=== PATIENT | male | born 1965 | race Caucasian/White ===

== ENCOUNTER 2018-02-07 17:40 | Emergency (ER) | payer OTHER ==
[~2018-02-07] VITALS: Ht 182.9 cm; Wt 129.3 kg
[~2018-02-07 17:40] MED LIST: CIPR500T94 PO; HYDR-971 PO; METR500T PO; ONDA4TAB10 PO
--- NOTE | 2018-02-07 18:24 | PHYS DOC ---
Past History Past Medical History: Constipation, Diverticulitis, Other Past Surgical History: TURP, Other Smoking: Non-smoker Alcohol Use: Rarely Drug Use: None Adult General Chief Complaint Chief Complaint: ABDOMINAL PAIN HPI HPI Patient is a 52 year old male who presents with complaint of left lower quadrant abdominal pain that started yesterday. Patient states he has history of diverticulitis and has had 3 flareups over the past 4 years. The patient states that his current pain feels almost exactly like his previous flareup. Patient states that rest his pain is to but increases to 4 with ambulation. Patient denies any associated fever or vomiting. Patient states he has had a decrease in bowel movements since onset of symptoms. The patient came to the emergency department given his history as he states he likely needs to be started on antibiotic therapy before his symptoms worsen. Review of Systems Review of Systems Constitutional: Denies fever or chills [] Eyes: Denies change in visual acuity, redness, or eye pain [] HENT: Denies nasal congestion or sore throat [] Respiratory: Denies cough or shortness of breath [] Cardiovascular: Denies chest pain or edema[] GI: Abdominal pain, denies nausea, vomiting, bloody stools or diarrhea [] : Denies dysuria or hematuria [] Musculoskeletal: Denies back pain or joint pain [] Integument: Denies rash or skin lesions [] Neurologic: Denies headache, focal weakness or sensory changes [] All other systems were reviewed and found to be within normal limits, except as documented in this note. Allergies Allergies Allergies Coded Allergies Type Severity Reaction Last Updated Verified No Known Drug Allergies 10/26/13 No Physical Exam Physical Exam Constitutional: Alert, afebrile, no acute distress. [] HENT: Normocephalic, atraumatic, bilateral external ears normal, oropharynx moist, no oral exudates, nose normal. [] Eyes: PERRLA, EOMI, conjunctiva normal, no discharge. [] Neck: Normal range of motion, no tenderness, supple, no stridor. [] Cardiovascular:Heart rate regular rhythm, no murmur [] Lungs & Thorax: Bilateral breath sounds clear to auscultation [] Abdomen: Bowel sounds normal, soft, left lower quadrant tenderness to palpation with guarding, no rebound tenderness, no masses, no pulsatile masses. [] Skin: Warm, dry, no erythema, no rash. [] Back: No tenderness, no CVA tenderness. [] Extremities: No tenderness, no cyanosis, no clubbing, ROM intact, no edema. [] Neurologic: Alert and oriented X 3, normal motor function, normal sensory function, no focal deficits noted. [] Current Patient Data Vital Signs Vital Signs Date Time Temp Pulse Resp B/P (MAP) Pulse Ox O2 Delivery O2 Flow Rate FiO2 02/07/18 17:44 98.7 94 18 94 Room Air Lab Results Laboratory Tests Test 02/07/18 18:03 White Blood Count 10.0 x10^3/uL Red Blood Count 5.78 x10^6/uL Hemoglobin 17.4 g/dL Hematocrit 50.4 % Mean Corpuscular Volume 87 fL Mean Corpuscular Hemoglobin 30 pg Mean Corpuscular Hemoglobin Concent 35 g/dL Red Cell Distribution Width 14.8 % Platelet Count 193 x10^3/uL Neutrophils (%) (Auto) 69 % Lymphocytes (%) (Auto) 17 % Monocytes (%) (Auto) 13 % Eosinophils (%) (Auto) 1 % Basophils (%) (Auto) 0 % Neutrophils # (Auto) 6.9 x10^3uL Lymphocytes # (Auto) 1.7 x10^3/uL Monocytes # (Auto) 1.3 x10^3/uL Eosinophils # (Auto) 0.1 x10^3/uL Basophils # (Auto) 0.0 x10^3/uL Sodium Level 141 mmol/L Potassium Level 4.0 mmol/L Chloride Level 105 mmol/L Carbon Dioxide Level 30 mmol/L Anion Gap 6 Blood Urea Nitrogen 21 mg/dL Creatinine 1.2 mg/dL Estimated GFR (Cockcroft-Gault) 63.8 Glucose Level 81 mg/dL Calcium Level 9.2 mg/dL Current Medications Medications (Trade) Dose Ordered Sig/Neno Route PRN Reason Start Time Stop Time Status Last Admin Dose Admin Metronidazole (Flagyl) 500 mg 1X ONCE PO 02/07/18 18:45 02/07/18 18:46 UNV Ciprofloxacin (Cipro) 500 mg 1X ONCE PO 02/07/18 18:45 02/07/18 18:46 UNV EKG EKG Not performed[] Radiology/Procedures Radiology/Procedures Not performed[] Course & Med Decision Making Course & Med Decision Making Pertinent Labs and Imaging studies reviewed. (See chart for details) Patient's lab work is unremarkable. Patient's exam is consistent with early diverticulitis. Patient started on oral Cipro and Flagyl in the emergency department. Patient will continue on 10 day course of therapy with recommended follow up in 3-4 days with primary doctor for reevaluation. Advised return to emergency department for any worsening symptoms. The patient voiced understanding and agreement with treatment plan.[] Dragon Disclaimer Dragon Disclaimer This electronic medical record was generated, in whole or in part, using a voice recognition dictation system. Departure Departure: Impression: Primary Impression: Diverticulitis Disposition: HOME, SELF-CARE Condition: STABLE Referrals: TIA SAMUEL (PCP) Patient Instructions: Diverticulitis Additional Instructions: Follow-up with your primary doctor in 3-4 days for reevaluation. Return to the emergency department for any worsening symptoms. Scripts Ciprofloxacin Hcl (CIPRO) 500 Mg Tablet 1 TAB PO BID, #20 TAB Prov: GEORGE MOMIN MD 02/07/18 Metronidazole (FLAGYL) 500 Mg Tablet 500 MG PO TID for 10 Days, #30 TAB Prov: GEORGE MOMIN MD 02/07/18 GEORGE MOMIN MD Feb 07, 2018 18:24
[2018-02-07 18:28] LABS: BASO % 0 % (0-3); EOS # 0.1 x10^3/uL (0.0-0.7); EOS % 1 % (0-3); HEMATOCRIT 50.4 % (39.0-53.0); HEMOGLOBIN 17.4 g/dL (13.0-17.5); LYMPH # 1.7 x10^3/uL (1.0-4.8); LYMPH % 17 % (24-48); MEAN CORPUSCULAR HEMOGLOBIN 30 pg (25-35); MEAN CORPUSCULAR HGB CONC 35 g/dL (31-37); MEAN CORPUSCULAR VOLUME 87 fL (79-100); MONO # 1.3 x10^3/uL (0.0-1.1); MONO % 13 % (0-9); NEUT # 6.9 x10^3uL (1.8-7.7); NEUT % 69 % (31-73); PLATELET COUNT 193 x10^3/uL (140-400); RED BLOOD COUNT 5.78 x10^6/uL (4.30-5.70); RED CELL DISTRIBUTION WIDTH 14.8 % (11.5-14.5)
[2018-02-07 18:32] LABS: CALCIUM 9.2 mg/dL (8.5-10.1); CREATININE 1.2 mg/dL (0.7-1.3); GFR 63.8
[2018-02-07] MEDS ORDERED: METR500T PO (18:43)
[2018-02-07] MEDS ORDERED: CIPR500T94 PO (18:43)
[2018-02-07] MEDS ORDERED: CIPROFLOXACIN HCL 500 MG TABLET PO ONE (18:45)
[2018-02-07] MEDS ORDERED: metroNIDAZOLE 500 MG TABLET PO ONE (18:45)
[2018-02-07 18:47] VITALS: BP 148/88
== END 2018-02-07 18:51 | disposition home or self-care (01) ==
LOC: ER 17:40
DX: K57.92 Diverticulitis of intestine, part unspecified, without perforation or abscess without bleeding (principal)
CPT/HCPCS: 36415; 80048; 85025; 99284

== ENCOUNTER → 2018-03-04 | Day surgery (SDC) | payer OTHER ==
[~2018-03-04] MED LIST changes: +IV RINGERS SOLUTION,LACTATED 1,000 ML IV SCH; +LIDOCAINE 2% PF Vial for OR 5 ML VIAL. ONE; +MIDAZOLAM HCL PF 2 MG/2 ML VIAL. IV ONE; +ONDANSETRON PF 4 MG/2 ML VIAL. IV PRN; +PROPOFOL 20 ML IV ONE
[2018-03-04 10:20] VITALS: BP 112/78
== END | disposition home or self-care (01) ==
LOC: SURG 07:48
PROVIDERS: ATTEND Surgery
DX: Z12.11 Encounter for screening for malignant neoplasm of colon (principal); K57.30 Diverticulosis of large intestine without perforation or abscess without bleeding; Z86.010 Personal history of colon polyps; Z98.890 Other specified postprocedural states; I10 Essential (primary) hypertension; Z87.891 Personal history of nicotine dependence; I25.2 Old myocardial infarction
CPT/HCPCS: 45378; J2704; J7120; J2001